=== PATIENT | female | born 1990 | race Caucasian/White ===

== ENCOUNTER 2024-08-30 22:22 | Emergency (ER) | payer BC ==
[~2024-08-30] VITALS: Ht 165.1 cm; Wt 53.5 kg
[2024-08-31 00:01] LABS: BASOPHILS % (AUTO) 0.7 % (0.0-2.0); EOSINOPHILS % (AUTO) 0.2 % (0.0-6.0); HEMATOCRIT 44 % (33-45); HEMOGLOBIN 14.4 g/dL (11.5-14.8); LYMPHOCYTES # (AUTO) 1.4 K/uL (0.8-4.8); LYMPHOCYTES % (AUTO) 19.5 % (20.0-44.0); MEAN CORPUSCULAR HEMOGLOBIN 29 PG (26.0-33.0); MEAN CORPUSCULAR HGB CONC 33 g/dl (31.0-36.0); MEAN CORPUSCULAR VOLUME 86 fL (82-100); MONOCYTES # (AUTO) 0.7 K/uL (0.1-1.30); MONOCYTES % (AUTO) 9.4 % (2.0-12.0); NEUTROPHILS # (AUTO) 5.1 K/uL (1.8-8.9); NEUTROPHILS % (AUTO) 70.2 % (43.0-81.0); PLATELET COUNT (AUTO) 179 K/uL (150-450); RED BLOOD CELL COUNT(AUTO) 5.05 MIL/uL (4.0-5.2); RED CELL DISTRIBUTION WIDTH 13.6 % (11.5-15.0); WHITE BLOOD COUNT (AUTO) 7.3 K/uL (4.3-11.0)
[2024-08-31 00:11] LABS: APPEARANCE,URINE CLEAR (CLEAR); BILIRUBIN,URINE NEGATIVE (NEGATIVE); BLOOD, URINE NEGATIVE Ery/uL (NEGATIVE); COLOR,URINE YELLOW (YELLOW); KETONES,URINE 1+ mg/dL (NEGATIVE); LEUKOCYTE ESTERASE ,URINE NEGATIVE (NEGATIVE); NITRITE, URINE NEGATIVE (NEGATIVE); PH,URINE 8.5 (5.0-8.0); PROTEIN,URINE TRACE mg/dl (NEGATIVE); UGLUCOSE NEGATIVE (NEGATIVE); UROBILINOGEN,URINE 0.2 EU/dL (0.2)
[2024-08-31 00:13] LABS: PREGNANCY TEST URINE QUAL NEGATIVE (NEGATIVE)
[2024-08-31 00:31] LABS: ALANINE AMINOTRANSFERASE 37 U/L (12-78); ALBUMIN 4.5 g/dL (3.4-5.0); ALCOHOL, BLOOD < 3 mg/dL (0-10); ALKALINE PHOSPHATASE 55 U/L (46-116); ASPARTATE AMINOTRANSFERASE 21 U/L (15-37); BILIRUBIN,TOTAL 0.9 mg/dL (0.2-1.0); CALCIUM, SERUM 9.8 mg/dL (8.5-10.1); CREATININE 0.8 mg/dL (0.6-1.3); GLUCOSE 82 mg/dL (74-106); TOTAL PROTEIN, SERUM 8.1 g/dL (6.4-8.2); UREA NITROGEN, BLOOD 8 mg/dL (7-18)
[2024-08-31 00:37] LABS: CARBON DIOXIDE 27 mmol/L (21-32); CHLORIDE 101 mmol/L (98-107); SODIUM SERUM 133 mmol/L (136-145)
[2024-08-31 00:39] LABS: AMPHETAMINE, URINE NEGATIVE (NEGATIVE); BARBITURATE, URINE NEGATIVE (NEGATIVE); BENZODIAZEPINE, URINE NEGATIVE (NEGATIVE); CANNABINOID, URINE NEGATIVE (NEGATIVE); COCCAINE, URINE NEGATIVE (NEGATIVE); OPIATE, URINE NEGATIVE (NEGATIVE); PHENCYCLIDINE SCREEN,URINE NEGATIVE (NEGATIVE)
[2024-08-31 00:39] LABS: POTASSIUM 6.3 mmol/L (3.5-5.1)
[2024-08-31 00:40] LABS: ACETAMINOPHEN <10 ug/ml (10-30); SALICYLATE < 0.2 mg/dL (2.8-20.0)
[2024-08-31] MEDS ORDERED: DEXTROSE 50%-WATER 50 ML DISP.SYRIN ONE ×2 (00:52→02:42)
[2024-08-31] MEDS ORDERED: INSULIN REGULAR, HUMAN 100 UNIT/ML 10 ML VIAL ONE (00:52)
[2024-08-31] MEDS ORDERED: SODIUM BICARBONATE SYR 50 MEQ/50 ML DISP.SYRIN ONE (00:52)
[2024-08-31] MEDS: SODIUM BICARBONATE SYR 50 MEQ/50 ML DISP.SYRIN IV ONE (01:04)
[2024-08-31] MEDS: INSULIN REGULAR, HUMAN 100 UNIT/ML 10 ML VIAL IV STA (01:04)
[2024-08-31] MEDS: IV NS 0.9% 1,000 ML IV ONE (01:04)
[2024-08-31] MEDS: DEXTROSE 50%-WATER 50 ML DISP.SYRIN IVP ONE ×2 (01:04→02:45)
[2024-08-31 01:11] LABS: SQUAMOUS EPITHELIAL CELL,UR Many /HPF (None Seen)
[2024-08-31 01:14] LABS: BACTERIA,URINE Many /HPF (None Seen)
[2024-08-31 01:16] LABS: ADD URINE CULTURE YES; RBC,URINE 0-2 /HPF (0-2)
[2024-08-31 03:23] LABS: CALCIUM, SERUM 8.3 mg/dL (8.5-10.1); CREATININE 0.8 mg/dL (0.6-1.3); POTASSIUM 3.7 mmol/L (3.5-5.1)
[2024-08-31 03:28] LABS: ALBUMIN 3.4 g/dL (3.4-5.0); BILIRUBIN,TOTAL 0.7 mg/dL (0.2-1.0); TOTAL PROTEIN, SERUM 6.4 g/dL (6.4-8.2)
[2024-08-31 06:11] VITALS: BP 100/58; TEMP 98; O2SAT 100
== END 2024-08-31 06:12 | disposition home or self-care (01) ==
LOC: ER 22:27 → TELE 08-31 02:33 → UNDOADMIN 08-31 02:33 → TELE 08-31 06:12 → ER 08-31 06:12 → UNDODISIN 08-31 16:41
DX: R45.851 Suicidal ideations (principal); E87.5 Hyperkalemia; F32.A Depression, unspecified; N39.0 Urinary tract infection, site not specified; Z20.822 Contact with and (suspected) exposure to COVID-19; Z79.899 Other long term (current) drug therapy
CPT/HCPCS: 99285; 93005; 85025; 84703; 81003; 80053 ×2; 87426; 80143; 80320; 80307; 96374; 96360; 96375; 96376; 87086; 81001; 36415 ×2; 82962 ×4; J1815; J3490; J7030 ×2; G0378; G0480